=== PATIENT | female | born 1945 | race Caucasian/White ===

== ENCOUNTER → 2017-10-06 | Outpatient (CLI) | payer MEDICARE, OTHER ==
[~2017-10-06] MED LIST: ACET500 PO; Aranesp40 MCG/11; CALC.25 PO; CALCA400CH PO; CARV3.125 PO; CHOL10002 PO; DOCU100 PO; FERSU220EL PO; FURO20 PO; HYDRA25 PO; MONT10T PO; OLME20 PO; OXYC5 PO; ROSU10TA PO; SERT50 PO; SITA25T2 PO; SODBIC650 PO; TOCO1000 PO; Ultram50 MG PO; WARF2.5 PO
[2017-10-06 11:44] LABS: Hematocrit 34.3 % (33.0-51.0); Hemoglobin 10.8 g/dL (11.5-16.0)
[2017-10-06 12:00] LABS: Albumin, Blood 3.9 g/dL (3.4-5.0); Anion Gap 11 mmol/L (6-16); Blood Urea Nitrogen 53 mg/dL (8-24); Bun/Creatinine Ratio 13.3 (12.0-20.0); CO2, Blood 19 mmol/L (21-32); Calcium, Blood 9.6 mg/dL (8.5-10.1); Chloride, Blood 110 mmol/L (98-108); Creatinine, Blood 3.99 mg/dL (0.40-1.00); Glomerular Filtration Rate 12 (60-); Glucose, Blood 89 mg/dL (70-99); Phosphorus, Blood 4.7 mg/dL (2.5-4.9); Potassium, Blood 4.4 mmol/L (3.5-5.5); Sodium, Blood 140 mmol/L (136-145)
== END | disposition home or self-care (01) ==
LOC: OLS 10:45
PROVIDERS: Internal Medicine
DX: I12.9 Hypertensive chronic kidney disease with stage 1 through stage 4 chronic kidney disease, or unspecified chronic kidney disease (principal); N18.4 Chronic kidney disease, stage 4 (severe); D63.1 Anemia in chronic kidney disease
CPT/HCPCS: 36415; 80069; 83970; 85014; 85018

== ENCOUNTER 2018-01-23 08:55 | Day surgery (SDC) | payer MEDICARE, OTHER ==
[~2018-01-23] VITALS: Ht 165.1 cm; Wt 76.2 kg
[~2018-01-23 08:55] MED LIST changes: -DOCU100 PO; -OXYC5 PO; -WARF2.5 PO
[2018-01-24 04:18] LABS: BASOPHILS ABSOLUTE AUTO 0.02 K/mm3 (0.00-0.23); BASOPHILS PERCENT AUTO 0 % (0-2); EOSINOPHILS PERCENT AUTO 0 % (0-6); Hematocrit 27.3 % (33.0-51.0); Hemoglobin 8.8 g/dL (11.5-16.0); IMMATURE GRAN ABSOLUTE AUTO 0.03 K/mm3 (0.00-0.10); IMMATURE GRAN PERCENT AUTO 0 % (0-1); LYMPHOCYTES ABSOLUTE AUTO 1.18 K/mm3 (0.84-5.20); LYMPHOCYTES PERCENT AUTO 13 % (21-46); MONOCYTES ABSOLUTE AUTO 0.78 K/mm3 (0.16-1.47); MONOCYTES PERCENT AUTO 9 % (4-13); Mean Corpuscular HGB Conc 32.2 g/dL (31.5-36.5); Mean Corpuscular Volume 102 fL (80-100); Mean Platelet Volume 9.5 fL (9.1-12.4); NEUTROPHILS ABSOLUTE AUTO 6.94 K/mm3 (1.96-9.15); NEUTROPHILS PERCENT AUTO 78 % (41-73); Platelet Count 168 K/mm3 (150-400); RDW Coefficient Variation 13.7 % (11.7-14.2); RDW Standard Deviation 50.3 fL (35.1-46.3); Red Blood Cell Count 2.67 M/mm3 (3.80-5.20); White Blood Cell Count 8.95 K/mm3 (4.00-11.30)
[2018-01-24 04:32] LABS: Bun/Creatinine Ratio 11.7 (12.0-20.0); Calcium, Blood 8.6 mg/dL (8.5-10.1); Creatinine, Blood 4.46 mg/dL (0.40-1.00); Magnesium, Blood 2.3 mg/dL (1.6-2.4); Potassium, Blood 4.6 mmol/L (3.5-5.5)
[2018-01-24] MEDS ORDERED: WARF2.5 PO (13:13)
[2018-01-24] MEDS ORDERED: OXYC5 PO (13:14)
[2018-01-24] MEDS ORDERED: DOCU100 PO (13:15)
== END 2018-01-24 15:08 | disposition home or self-care (01) ==
LOC: ORSCMMR 08:55 → ORD 10:30 → ORSCMMR 10:30 → SURS 13:55 → ORSCMMR 01-24 15:08
PROVIDERS: Orthopaedic Surgery
PROC: 0SRC0J9 Replacement of Right Knee Joint with Synthetic Substitute, Cemented, Open Approach (ICD-10-PCS; principal; 2018-01-23 10:30)
DX: M17.11 Unilateral primary osteoarthritis, right knee (principal); E11.9 Type 2 diabetes mellitus without complications; N18.9 Chronic kidney disease, unspecified; Z01.812 Encounter for preprocedural laboratory examination; Z01.818 Encounter for other preprocedural examination; I10 Essential (primary) hypertension; Z79.899 Other long term (current) drug therapy
CPT/HCPCS: 36415; 73560-RT; 80048; 82947; 83735; 85025; 86850; 86900; 86901; 88300; 97110; 97116; 97161; 97530; C1713; C1776; G8978; G8979; J0171; J0360; J0690; J0735; J1100; J1170; J1885; J2405; J2765; J2795; J3010; J7030; J7120

== ENCOUNTER → 2018-03-28 | Outpatient (CLI) | payer MEDICARE, OTHER ==
[~2018-03-28] MED LIST changes: +DOCU100 PO; +OXYC5 PO; +WARF2.5 PO
[2018-03-30 15:04] LABS: Stool Occult Bld Immuno 1 Negative (NEGATIVE)
== END ==
LOC: LAB SHORT 09:00 → OLS 09:00 → LAB FUT 03-21 10:05 → EDSTATUS 03-21 10:05
PROVIDERS: Student in an Organized Health Care Education/Training Program
DX: Z12.11 Encounter for screening for malignant neoplasm of colon (principal)
CPT/HCPCS: G0328

== ENCOUNTER → 2019-03-01 | Outpatient (CLI) | payer MEDICARE, OTHER ==
[2019-03-01 10:37] LABS: Appearance, Urine Clear (Clear); Bilirubin, Urine Neg (Neg); Blood, Urine Neg (Neg); Color, Urine Yellow (P-Yellow); Glucose Qualitative, Urine Neg (Neg); Ketones, Urine Neg (Neg); Leukocyte Esterase, Urine 1+ (Neg); Nitrite, Urine Neg (Neg); Protein, Urine 3+ (Neg); Urobilinogen, Urine NORM (Normal)
[2019-03-01 10:48] LABS: Red Blood Cells, Urine 0-2 /hpf (0-2)
[2019-03-01 10:49] LABS: Bacteria Few /hpf; Squamous Epithelial Cells Few /hpf (Few)
== END | disposition home or self-care (01) ==
LOC: LAB SHORT 10:23 → LAB 10:23
PROVIDERS: Internal Medicine
DX: R39.15 Urgency of urination (principal)
CPT/HCPCS: 81001; 87086

== ENCOUNTER 2019-04-19 08:34 | Emergency (ER) | payer MEDICARE, OTHER ==
[~2019-04-19] VITALS: Ht 160 cm; Wt 80.7 kg
[~2019-04-19 08:34] MED LIST changes: -CALC.25 PO; -CARV3.125 PO; -CHOL10002 PO; -FURO20 PO; -MONT10T PO; -OLME20 PO; -ROSU10TA PO; -SERT50 PO; -TOCO1000 PO
[2019-04-19 09:40] LABS: BASOPHILS ABSOLUTE AUTO 0.02 K/mm3 (0.00-0.23); BASOPHILS PERCENT AUTO 0 % (0-2); EOSINOPHILS PERCENT AUTO 1 % (0-6); Hematocrit 34.2 % (33.0-51.0); Hemoglobin 11.3 g/dL (11.5-16.0); IMMATURE GRAN ABSOLUTE AUTO 0.02 K/mm3 (0.00-0.10); IMMATURE GRAN PERCENT AUTO 0 % (0-1); LYMPHOCYTES ABSOLUTE AUTO 1.74 K/mm3 (0.84-5.20); LYMPHOCYTES PERCENT AUTO 22 % (21-46); MONOCYTES ABSOLUTE AUTO 0.68 K/mm3 (0.16-1.47); MONOCYTES PERCENT AUTO 8 % (4-13); Mean Corpuscular HGB 33.6 pg (26.0-34.0); Mean Corpuscular Volume 102 fL (80-100); Mean Platelet Volume 9.9 fL (9.1-12.4); NEUTROPHILS ABSOLUTE AUTO 5.49 K/mm3 (1.96-9.15); NEUTROPHILS PERCENT AUTO 68 % (41-73); Platelet Count 201 K/mm3 (150-400); RDW Coefficient Variation 12.6 % (11.7-14.2); RDW Standard Deviation 46.8 fL (35.1-46.3); Red Blood Cell Count 3.36 M/mm3 (3.80-5.20); White Blood Cell Count 8.05 K/mm3 (4.00-11.30)
[2019-04-19 09:58] LABS: Albumin, Blood 3.4 g/dL (3.4-5.0); Albumin/Globulin Ratio 0.9 (0.8-1.8); Bilirubin, Total 0.4 mg/dL (0.1-1.0); Bun/Creatinine Ratio 6.9 (12.0-20.0); Calcium, Blood 9.6 mg/dL (8.5-10.1); Creatinine, Blood 6.39 mg/dL (0.40-1.00); Globulin, Blood 3.6 g/dL (2.2-4.0); Potassium, Blood 4.1 mmol/L (3.5-5.5)
[2019-04-19 10:26] LABS: Automated BF WBC Count 0.111 K/mm3 (0-999); Body Fluid WBC Count 111 /mm3 (0-999)
[2019-04-19 10:36] LABS: Albumin, Body Fluid 0.3 g/dL
[2019-04-19 11:13] LABS: RBC Count, Body Fluid 50 /mm3 (0-0)
[2019-04-19 11:15] LABS: Appearance, Body Fluid Hazy (Clear); Color, Body Fluid L Yellow (None-Yellow)
[2019-04-19 11:30] LABS: Total Cell Count, Body Fluid 100
[2019-07-19] MEDS ORDERED: Percocet 5-3251 EACH PO (09:36)
== END 2019-04-19 11:42 | disposition home or self-care (01) ==
LOC: ER 08:34
PROVIDERS: Emergency Medicine
DX: J90 Pleural effusion, not elsewhere classified (principal); I10 Essential (primary) hypertension; Z88.8 Allergy status to other drugs, medicaments and biological substances; Z88.5 Allergy status to narcotic agent; Z88.1 Allergy status to other antibiotic agents; Z88.0 Allergy status to penicillin; Z79.899 Other long term (current) drug therapy; Z79.01 Long term (current) use of anticoagulants
CPT/HCPCS: 32555; 71045; 71046; 80053; 82042; 83880; 85025; 87070; 87205; 89051; 99284-25

== ENCOUNTER 2019-04-23 08:55 | Observation (INO) | payer MEDICARE, OTHER ==
[~2019-04-23] VITALS: Ht 160 cm; Wt 81.7 kg
[2019-04-23 10:24] LABS: BASOPHILS ABSOLUTE AUTO 0.05 K/mm3 (0.00-0.23); BASOPHILS PERCENT AUTO 1 % (0-2); EOSINOPHILS ABSOLUTE AUTO 0.12 K/mm3 (0.00-0.68); EOSINOPHILS PERCENT AUTO 2 % (0-6); Hematocrit 34.2 % (33.0-51.0); Hemoglobin 11.2 g/dL (11.5-16.0); IMMATURE GRAN ABSOLUTE AUTO 0.01 K/mm3 (0.00-0.10); IMMATURE GRAN PERCENT AUTO 0 % (0-1); LYMPHOCYTES ABSOLUTE AUTO 1.59 K/mm3 (0.84-5.20); LYMPHOCYTES PERCENT AUTO 23 % (21-46); MONOCYTES ABSOLUTE AUTO 0.61 K/mm3 (0.16-1.47); MONOCYTES PERCENT AUTO 9 % (4-13); Mean Corpuscular HGB 33.8 pg (26.0-34.0); Mean Corpuscular HGB Conc 32.7 g/dL (31.5-36.5); Mean Corpuscular Volume 103 fL (80-100); Mean Platelet Volume 10.1 fL (9.1-12.4); NEUTROPHILS ABSOLUTE AUTO 4.55 K/mm3 (1.96-9.15); NEUTROPHILS PERCENT AUTO 66 % (41-73); Platelet Count 216 K/mm3 (150-400); RDW Coefficient Variation 12.7 % (11.7-14.2); RDW Standard Deviation 48.1 fL (35.1-46.3); Red Blood Cell Count 3.31 M/mm3 (3.80-5.20); White Blood Cell Count 6.93 K/mm3 (4.00-11.30)
[2019-04-23 10:35] LABS: International Normalized Ratio 0.97; Prothrombin Time Results 10.3 Sec (9.7-11.5)
[2019-04-23 10:44] LABS: Albumin, Blood 3.4 g/dL (3.4-5.0); Albumin/Globulin Ratio 1.1 (0.8-1.8); Bilirubin, Total 0.3 mg/dL (0.1-1.0); Bun/Creatinine Ratio 6.9 (12.0-20.0); Calcium, Blood 8.9 mg/dL (8.5-10.1); Creatinine, Blood 5.49 mg/dL (0.40-1.00); Globulin, Blood 3.1 g/dL (2.2-4.0); Potassium, Blood 3.3 mmol/L (3.5-5.5); Total Protein, Blood 6.5 g/dL (6.4-8.2)
--- NOTE | 2019-04-23 12:56 | NUR ---
ECHOCARDIOGRAM COMPLETED
[2019-04-23] MEDS ORDERED: Benicar40 MG PO (13:10)
[2019-04-23] MEDS ORDERED: GABA100 PO (13:11)
[2019-04-23] MEDS ORDERED: NEPHRO-VITE RX1 EACH PO (13:12)
[2019-04-23] MEDS ORDERED: CARV3.125 PO (13:13)
[2019-04-23] MEDS ORDERED: Calcium Acetat667 MG PO (13:13)
[2019-04-23] MEDS ORDERED: CLON.1 PO (13:14)
[2019-04-23] MEDS ORDERED: FURO80 PO (13:14)
[2019-04-23] MEDS ORDERED: CALC.25 PO (13:15)
[2019-04-23] MEDS ORDERED: ROSU10TA PO (13:38)
[2019-04-23] MEDS ORDERED: MONT10T PO (13:39)
[2019-04-23] MEDS ORDERED: CHOL10002 PO (13:39)
[2019-04-23] MEDS ORDERED: SERT50 PO (13:39)
[2019-04-23] MEDS ORDERED: Vitamin E400 UNI4 PO (13:40)
[2019-04-23] MEDS ORDERED: ACET500 PO (13:41)
--- NOTE | 2019-04-23 15:47 | NUR ---
PATIENT ADMITTED TO [facility] FLOOR VIA ER WITH RECURRENT PLEURAL EFFUSION. PATIENT'S PERITONEUM DRAINED TO DRY PER DR MORE'S ORDER. PATIENT'S HOME PD RX IS SET FOR " DRY " DAYTIME AND NO LAST FILL, VERY LITTLE FLUID RETURN WAS OBTAINED. APPROXIMATELY 20 ML DRAIN WAS NOTED. PATIENT COMFORTABLE T/O PROCEDURE. WHEN DRAIN COMPLETE, NEW MINI-CAP WAS AESEPTICALLY PLACED ON CATHETER AND LINE SECURED IN PATIENT GARMENT.
[2019-04-23 16:27] LABS: Automated BF WBC Count 0.139 K/mm3 (0-999); Body Fluid WBC Count 139 /mm3 (0-999)
[2019-04-23 16:43] LABS: pH, Body Fluid 6.1
[2019-04-23 16:48] LABS: Albumin, Body Fluid 0.3 g/dL; Glucose, Body Fluid 426 mg/dL; Lactate Dehydrogenase, Body Fl 19 U/L; Protein, Body Fluid 0.4 g/dL; Triglycerides, Body Fluid 10 mg/dL
[2019-04-23 17:13] LABS: RBC Count, Body Fluid 41 /mm3 (0-0)
[2019-04-23 17:14] LABS: Appearance, Body Fluid Clear (Clear); Color, Body Fluid No color (None-Yellow)
[2019-04-23 17:46] LABS: Total Cell Count, Body Fluid 100
--- NOTE | 2019-04-23 19:41 | NUR ---
SHE HAS BEEN ADMITTED FROM THE ER TO 358 LATE THIS AFTERNOON. SHE IS VERY PLEASANT, A&O AND COOPERATIVE. SHE WALKS WITH A CANE INDEPENDENTLY. THE BANDAID ON HER R BACK POST THORACENTESIS IS CD&I. VERY MILD SOB. PERITONEAL DIALYSIS CATHETER IN L ABD CAPPED AND HAS DRESSING INTACT. L ARM DIALYSIS FISTULA WITH GOOD THRILL AND BRUITT. VSS. NO COMPLAINTS.
[2019-04-24 04:58] LABS: BASOPHILS ABSOLUTE AUTO 0.04 K/mm3 (0.00-0.23); BASOPHILS PERCENT AUTO 1 % (0-2); EOSINOPHILS ABSOLUTE AUTO 0.13 K/mm3 (0.00-0.68); EOSINOPHILS PERCENT AUTO 2 % (0-6); Hematocrit 32.3 % (33.0-51.0); Hemoglobin 10.6 g/dL (11.5-16.0); IMMATURE GRAN ABSOLUTE AUTO 0.02 K/mm3 (0.00-0.10); IMMATURE GRAN PERCENT AUTO 0 % (0-1); LYMPHOCYTES ABSOLUTE AUTO 1.91 K/mm3 (0.84-5.20); LYMPHOCYTES PERCENT AUTO 33 % (21-46); MONOCYTES ABSOLUTE AUTO 0.57 K/mm3 (0.16-1.47); MONOCYTES PERCENT AUTO 10 % (4-13); Mean Corpuscular HGB 33.7 pg (26.0-34.0); Mean Corpuscular HGB Conc 32.8 g/dL (31.5-36.5); Mean Corpuscular Volume 103 fL (80-100); NEUTROPHILS ABSOLUTE AUTO 3.19 K/mm3 (1.96-9.15); NEUTROPHILS PERCENT AUTO 55 % (41-73); Platelet Count 197 K/mm3 (150-400); RDW Coefficient Variation 12.6 % (11.7-14.2); RDW Standard Deviation 47.2 fL (35.1-46.3); Red Blood Cell Count 3.15 M/mm3 (3.80-5.20); White Blood Cell Count 5.86 K/mm3 (4.00-11.30)
--- NOTE | 2019-04-24 05:00 | NUR ---
SHIFT SUMMARY NO ACUTE CHANGES TONIGHT. PT DENIES SOB OR DISCOMFORT. INDEPENDENT IN RM, A&O X 4. VSS, PT AFEBRILE. LS DIM T/O, RESP E/U ON RA. PT TO HAVE HD TODAY PER DR MORE. 22 G TO R HAND IS SL. PT SLPT THROUGH THE NIGHT, AND IS CURRENTLY RESTING IN BED AT THIS TIME, CALL LT IN REACH. WILL CONT TO MONITOR AND PRVIDE CARE UNTIL PRESUMED BY ONCOMING RN.
[2019-04-24 05:19] LABS: Bun/Creatinine Ratio 7.4 (12.0-20.0); Calcium, Blood 9.5 mg/dL (8.5-10.1); Creatinine, Blood 6.36 mg/dL (0.40-1.00); Potassium, Blood 3.6 mmol/L (3.5-5.5)
[2019-04-24] MEDS ORDERED: AMLO5 PO (12:34)
[2019-04-24] MEDS ORDERED: SODBIC650 PO (12:35)
--- NOTE | 2019-04-24 14:31 | NUR ---
PATIENT HAD HEMODIALYSIS THIS MORNING THEN DISCHARGED HOME WITH HER . ESCORTED OUT VIA W/C BY WASH OIL PUMP OPERATOR HELPER. IV REMOVED. INSTRUCTED TO FOLLOW UP WITH DR. MORE FOR OUTPATIENT DIAYLSIS. PATIENT HAS HAD NO ACUTE ISSUES. EAGER TO DISCHARGE HOME. NO SOB NOTED.
[2019-07-19] MEDS ORDERED: Percocet 5-3251 EACH PO (09:36)
== END 2019-04-24 13:10 | disposition home or self-care (01) ==
LOC: ER 08:55 → ERHOLD 08:56 → MEDS 08:56 → ERHOLD 11:18 → MEDS 11:18 → ER 11:18 → MEDS 11:18 → ERHOLD 15:25 → MEDS 15:25 → ENPENDDIS 04-24 10:26 → MEDS 04-24 13:10
PROVIDERS: Physician Assistant; ADMIT Family Medicine
DX: J90 Pleural effusion, not elsewhere classified (principal); I12.0 Hypertensive chronic kidney disease with stage 5 chronic kidney disease or end stage renal disease; K21.9 Gastro-esophageal reflux disease without esophagitis; N18.6 End stage renal disease; M54.5 Low back pain; G89.29 Other chronic pain; J45.909 Unspecified asthma, uncomplicated; M10.9 Gout, unspecified; M48.061 Spinal stenosis, lumbar region without neurogenic claudication; E03.9 Hypothyroidism, unspecified; Z79.899 Other long term (current) drug therapy; Z88.1 Allergy status to other antibiotic agents; Z88.5 Allergy status to narcotic agent; Z88.8 Allergy status to other drugs, medicaments and biological substances
CPT/HCPCS: 32555; 36415; 71045; 71046; 71250; 80048; 80053; 82042; 82945; 83615; 83986; 84157; 84478; 85025; 85610; 87015; 87070; 87102; 87116; 87205; 87206; 88108; 88305; 88342; 89051; 93005; 93010; 93306; 99285-25; G0257; G0378; J1644

== ENCOUNTER 2020-12-18 14:05 | Observation (INO) | payer MEDICARE, OTHER ==
[~2020-12-18] VITALS: Ht 160 cm; Wt 69.0 kg
[~2020-12-18 14:05] MED LIST changes: +AMLO5 PO; +Benicar40 MG PO; +CALC.25 PO; +CARV3.125 PO; +CLON.1 PO; +Calcium Acetat667 MG PO; +FURO80 PO; +GABA100 PO; +MONT10T PO; +NEPHRO-VITE RX1 EACH PO; +Percocet 5-3251 EACH PO; +ROSU10TA PO; +SERT50 PO; +VITAMIN D31000 UNI1 PO; +Vitamin E400 UNI4 PO
[2020-12-18 14:58] LABS: BASOPHILS ABSOLUTE AUTO 0.03 K/mm3 (0.00-0.23); BASOPHILS PERCENT AUTO 1 % (0-2); EOSINOPHILS ABSOLUTE AUTO 0.15 K/mm3 (0.00-0.68); EOSINOPHILS PERCENT AUTO 3 % (0-6); Hematocrit 32.4 % (33.0-51.0); IMMATURE GRAN ABSOLUTE AUTO 0.01 K/mm3 (0.00-0.10); IMMATURE GRAN PERCENT AUTO 0 % (0-1); LYMPHOCYTES ABSOLUTE AUTO 1.69 K/mm3 (0.84-5.20); LYMPHOCYTES PERCENT AUTO 32 % (21-46); MONOCYTES ABSOLUTE AUTO 0.54 K/mm3 (0.16-1.47); MONOCYTES PERCENT AUTO 10 % (4-13); Mean Corpuscular HGB 34.1 pg (26.0-34.0); Mean Corpuscular Volume 100 fL (80-100); Mean Platelet Volume 9.4 fL (9.1-12.4); NEUTROPHILS ABSOLUTE AUTO 2.84 K/mm3 (1.96-9.15); NEUTROPHILS PERCENT AUTO 54 % (41-73); Platelet Count 229 K/mm3 (150-400); RDW Coefficient Variation 13.1 % (11.7-14.2); RDW Standard Deviation 48.6 fL (35.1-46.3); Red Blood Cell Count 3.23 M/mm3 (3.80-5.20); White Blood Cell Count 5.26 K/mm3 (4.00-11.30)
[2020-12-18 15:20] LABS: Albumin, Blood 3.6 g/dL (3.4-5.0); Albumin/Globulin Ratio 0.9 (0.8-1.8); Bilirubin, Total 0.6 mg/dL (0.1-1.0); Bun/Creatinine Ratio 4.2 (12.0-20.0); Calcium, Blood 9.4 mg/dL (8.5-10.1); Creatinine, Blood 2.37 mg/dL (0.40-1.00); Globulin, Blood 3.9 g/dL (2.2-4.0); Potassium, Blood 3.2 mmol/L (3.5-5.5); Total Protein, Blood 7.5 g/dL (6.4-8.2); Troponin I 0.015 ng/mL (0.000-0.040)
[2020-12-18 20:15] LABS: International Normalized Ratio 0.98; Prothrombin Time Results 10.5 Sec (9.7-11.5)
[2020-12-18] MEDS ORDERED: HYDRA25 (21:21)
[2020-12-18] MEDS ORDERED: FURO80 PO (21:21)
[2020-12-18] MEDS ORDERED: LOSARTAN POTASS25 MG (21:22)
--- NOTE | 2020-12-19 04:11 | NUR ---
CHIEF INNOVATION OFFICER SUMMARY A/OX4, INDEPENDENT WITH FWW. ADMITTED FROM ED AT 2100. PT CONVERTED TO NSR IN THE 80'S AT 2230. DENIES PAIN OR SOB. FISTLUA TO L. FA. VSS, NO AUCTE CHANGES AT THIS TIMED. BED IN LOWEST POSITION WITH CALL LIGHT IN REACH. WILL CONTINUE TO MONITOR AND REPORT TO ONCOMING RN.
[2020-12-19 05:13] LABS: BASOPHILS ABSOLUTE AUTO 0.03 K/mm3 (0.00-0.23); BASOPHILS PERCENT AUTO 1 % (0-2); EOSINOPHILS ABSOLUTE AUTO 0.13 K/mm3 (0.00-0.68); EOSINOPHILS PERCENT AUTO 2 % (0-6); Hematocrit 28.3 % (33.0-51.0); Hemoglobin 9.6 g/dL (11.5-16.0); IMMATURE GRAN ABSOLUTE AUTO 0.01 K/mm3 (0.00-0.10); IMMATURE GRAN PERCENT AUTO 0 % (0-1); LYMPHOCYTES ABSOLUTE AUTO 1.82 K/mm3 (0.84-5.20); LYMPHOCYTES PERCENT AUTO 31 % (21-46); MONOCYTES ABSOLUTE AUTO 0.73 K/mm3 (0.16-1.47); MONOCYTES PERCENT AUTO 13 % (4-13); Mean Corpuscular HGB 34.8 pg (26.0-34.0); Mean Corpuscular HGB Conc 33.9 g/dL (31.5-36.5); Mean Corpuscular Volume 103 fL (80-100); Mean Platelet Volume 9.7 fL (9.1-12.4); NEUTROPHILS ABSOLUTE AUTO 3.11 K/mm3 (1.96-9.15); NEUTROPHILS PERCENT AUTO 53 % (41-73); Platelet Count 206 K/mm3 (150-400); RDW Coefficient Variation 13.2 % (11.7-14.2); RDW Standard Deviation 49.3 fL (35.1-46.3); Red Blood Cell Count 2.76 M/mm3 (3.80-5.20); White Blood Cell Count 5.83 K/mm3 (4.00-11.30)
[2020-12-19 05:43] LABS: Albumin, Blood 3.3 g/dL (3.4-5.0); Albumin/Globulin Ratio 0.9 (0.8-1.8); Bilirubin, Total 1.1 mg/dL (0.1-1.0); Bun/Creatinine Ratio 4.3 (12.0-20.0); Calcium, Blood 9.4 mg/dL (8.5-10.1); Creatinine, Blood 3.52 mg/dL (0.40-1.00); Globulin, Blood 3.5 g/dL (2.2-4.0); Potassium, Blood 3.8 mmol/L (3.5-5.5); Total Protein, Blood 6.8 g/dL (6.4-8.2)
--- NOTE | 2020-12-19 13:07 | NUR ---
echocardiogram complete
--- NOTE | 2020-12-19 17:53 | NUR ---
PATIENT IS ALERT AND ORIENTED AND COOPERATIVE WITH CARE. SHE IS INDEPENDENT IN HER ROOM. C/O CHRONIC PAIN TO HER BACK AND RIGHT LEG, TREATED PER EMAR AND WITH A ICE PACK. DR. CRUMP WAS CONSULTED TODAY. WILL CONTINUE TO MONITOR.
--- NOTE | 2020-12-19 17:56 | NUR ---
PATIENT IS ALERT AND ORIENTED WITH INTERMITTENT CONFUSION. SHE IS INDEPENDENT IN HER ROOM WITH A FWW. PATIENT C/O RIGHT SHOULDER PAIN, TREATED PER EMAR. NO NEW CONCERNS TODAY. WILL CONTINUE TO MONITOR
--- NOTE | 2020-12-20 03:47 | NUR ---
PAINT TESTER SUMMARY A/OX4, INDEPENDENT TO BATHROOM WITH FWW. C/O PAIN TO LOWER BACK, MEDICATED PER EMAR X1. TELE IN PLACE RUNNING SR IN THE 70'S. FISTULA TO L. FA. VSS, NO ACUTE CHANGES AT THIS TIME. BED IN LOWEST POSITION WITH CALL LIGHT IN REACH. WILL CONTINUE TO MONITOR AND REPORT TO ONCOMING RN.
[2020-12-20 07:55] LABS: Albumin, Blood 3.5 g/dL (3.4-5.0); Anion Gap 6 mmol/L (6-16); Blood Urea Nitrogen 30 mg/dL (8-24); Bun/Creatinine Ratio 5.7 (12.0-20.0); CO2, Blood 33 mmol/L (21-32); Calcium, Blood 9.5 mg/dL (8.5-10.1); Chloride, Blood 99 mmol/L (98-108); Creatinine, Blood 5.28 mg/dL (0.40-1.00); Glomerular Filtration Rate 8 (60-); Glucose, Blood 83 mg/dL (70-99); Magnesium, Blood 2.2 mg/dL (1.6-2.4); Phosphorus, Blood 5.7 mg/dL (2.5-4.9); Potassium, Blood 4.4 mmol/L (3.5-5.5); Sodium, Blood 138 mmol/L (136-145)
[2020-12-20] MEDS ORDERED: ELIQUIS5 MG PO (13:15)
[2020-12-20] MEDS ORDERED: METO25 PO (13:15)
[2020-12-20] MEDS ORDERED: Percocet 5-3251 EACH PO (13:16)
== END 2020-12-20 13:38 | disposition home or self-care (01) ==
LOC: ER 14:05 → MEDS 14:06
PROVIDERS: Internal Medicine Nephrology; Pharmacist; Physician Assistant; ADMIT Internal Medicine
DX: I48.91 Unspecified atrial fibrillation (principal); N18.6 End stage renal disease; N25.81 Secondary hyperparathyroidism of renal origin; I12.0 Hypertensive chronic kidney disease with stage 5 chronic kidney disease or end stage renal disease; Z66 Do not resuscitate; G89.29 Other chronic pain; D63.1 Anemia in chronic kidney disease; K21.9 Gastro-esophageal reflux disease without esophagitis; I08.1 Rheumatic disorders of both mitral and tricuspid valves; J45.909 Unspecified asthma, uncomplicated; E87.6 Hypokalemia; M79.606 Pain in leg, unspecified; E86.9 Volume depletion, unspecified; E88.09 Other disorders of plasma-protein metabolism, not elsewhere classified; M54.9 Dorsalgia, unspecified; Z88.5 Allergy status to narcotic agent; Z88.0 Allergy status to penicillin; Z88.1 Allergy status to other antibiotic agents; Z88.8 Allergy status to other drugs, medicaments and biological substances; Z99.2 Dependence on renal dialysis; Z90.49 Acquired absence of other specified parts of digestive tract; Z90.710 Acquired absence of both cervix and uterus; Z90.89 Acquired absence of other organs; Z98.890 Other specified postprocedural states; Z79.899 Other long term (current) drug therapy
CPT/HCPCS: 36415; 71045; 80053; 80069; 83735; 84443; 84484; 85018; 85025; 85610; 85730; 93005; 93010; 93306; 99285-25; A9270; A9270-GY; G0378

== ENCOUNTER 2021-04-07 12:52 | Inpatient (IN) | payer MEDICARE, OTHER ==
[~2021-04-07] VITALS: Ht 160 cm; Wt 66.3 kg
[~2021-04-07 12:52] MED LIST changes: +ELIQUIS5 MG PO; +LOSARTAN POTASS25 MG; +METO25 PO
[2021-04-07 13:58] LABS: BASOPHILS ABSOLUTE AUTO 0.04 K/mm3 (0.00-0.23); BASOPHILS PERCENT AUTO 1 % (0-2); EOSINOPHILS ABSOLUTE AUTO 0.07 K/mm3 (0.00-0.68); EOSINOPHILS PERCENT AUTO 1 % (0-6); Hematocrit 31.9 % (33.0-51.0); IMMATURE GRAN ABSOLUTE AUTO 0.02 K/mm3 (0.00-0.10); IMMATURE GRAN PERCENT AUTO 0 % (0-1); LYMPHOCYTES ABSOLUTE AUTO 1.77 K/mm3 (0.84-5.20); LYMPHOCYTES PERCENT AUTO 23 % (21-46); MONOCYTES ABSOLUTE AUTO 0.47 K/mm3 (0.16-1.47); MONOCYTES PERCENT AUTO 6 % (4-13); Mean Corpuscular HGB 32.2 pg (26.0-34.0); Mean Corpuscular HGB Conc 31.3 g/dL (31.5-36.5); Mean Corpuscular Volume 103 fL (80-100); Mean Platelet Volume 10.3 fL (9.1-12.4); NEUTROPHILS PERCENT AUTO 69 % (41-73); Platelet Count 190 K/mm3 (150-400); RDW Coefficient Variation 15.3 % (11.7-14.2); RDW Standard Deviation 57.1 fL (35.1-46.3); Red Blood Cell Count 3.11 M/mm3 (3.80-5.20); White Blood Cell Count 7.57 K/mm3 (4.00-11.30)
[2021-04-07 14:20] LABS: Albumin, Blood 3.2 g/dL (3.4-5.0); Bilirubin, Total 0.9 mg/dL (0.1-1.0); Bun/Creatinine Ratio 3.9 (12.0-20.0); Calcium, Blood 8.9 mg/dL (8.5-10.1); Creatinine, Blood 5.34 mg/dL (0.40-1.00); Globulin, Blood 3.3 g/dL (2.2-4.0); Potassium, Blood 3.9 mmol/L (3.5-5.5); Total Protein, Blood 6.5 g/dL (6.4-8.2)
[2021-04-07 15:26] LABS: Source, Urine Clean Catch
[2021-04-07 15:39] LABS: Appearance, Urine Hazy (Clear); Bilirubin, Urine Neg (Neg); Blood, Urine 2+ (Neg); Color, Urine Yellow (P-Yellow); Glucose Qualitative, Urine 2+ (Neg); Ketones, Urine Neg (Neg); Leukocyte Esterase, Urine 1+ (Neg); Nitrite, Urine Neg (Neg); Protein, Urine 4+ (Neg); Specific Gravity, Urine 1.015 (1.003-1.022); Urobilinogen, Urine NORM (Normal)
[2021-04-07 16:03] LABS: Amorphous Light (0-Heavy); Bacteria Many /hpf; Red Blood Cells, Urine 0-2 /hpf (0-2); Squamous Epithelial Cells Few /hpf (Few)
[2021-04-07] MEDS ORDERED: CINA30 PO (17:37)
[2021-04-07] MEDS ORDERED: RENAL VITAMIN0.8 MG PO (17:38)
[2021-04-07] MEDS ORDERED: SEVEC800 PO ×2 (17:38→17:39)
[2021-04-07] MEDS ORDERED: TUMS500 MG PO (17:39)
[2021-04-07] MEDS ORDERED: ACET500 PO (17:39)
[2021-04-07 18:14] LABS: International Normalized Ratio 1.15; Prothrombin Time Results 12.3 Sec (9.7-11.5)
[2021-04-08 01:56] LABS: BASOPHILS ABSOLUTE AUTO 0.06 K/mm3 (0.00-0.23); BASOPHILS PERCENT AUTO 1 % (0-2); EOSINOPHILS ABSOLUTE AUTO 0.03 K/mm3 (0.00-0.68); EOSINOPHILS PERCENT AUTO 0 % (0-6); Hematocrit 32.7 % (33.0-51.0); Hemoglobin 10.5 g/dL (11.5-16.0); IMMATURE GRAN ABSOLUTE AUTO 0.03 K/mm3 (0.00-0.10); IMMATURE GRAN PERCENT AUTO 0 % (0-1); LYMPHOCYTES PERCENT AUTO 24 % (21-46); MONOCYTES PERCENT AUTO 8 % (4-13); Mean Corpuscular HGB 32.5 pg (26.0-34.0); Mean Corpuscular HGB Conc 32.1 g/dL (31.5-36.5); Mean Corpuscular Volume 101 fL (80-100); Mean Platelet Volume 10.1 fL (9.1-12.4); NEUTROPHILS ABSOLUTE AUTO 4.92 K/mm3 (1.96-9.15); NEUTROPHILS PERCENT AUTO 66 % (41-73); NRBC ABSOLUTE 0.03 K/mm3 (0.00-0.02); NRBC Auto 0.4 /100 WBC (0.0-0.2); Platelet Count 165 K/mm3 (150-400); RDW Coefficient Variation 15.3 % (11.7-14.2); RDW Standard Deviation 55.8 fL (35.1-46.3); Red Blood Cell Count 3.23 M/mm3 (3.80-5.20); White Blood Cell Count 7.44 K/mm3 (4.00-11.30)
[2021-04-08 02:17] LABS: Albumin, Blood 3.3 g/dL (3.4-5.0); Anion Gap 12 mmol/L (6-16); Blood Urea Nitrogen 27 mg/dL (8-24); Bun/Creatinine Ratio 4.5 (12.0-20.0); CO2, Blood 27 mmol/L (21-32); Calcium, Blood 9.4 mg/dL (8.5-10.1); Chloride, Blood 99 mmol/L (98-108); Creatinine, Blood 6.03 mg/dL (0.40-1.00); Glomerular Filtration Rate 7 (60-); Glucose, Blood 106 mg/dL (70-99); Phosphorus, Blood 5.6 mg/dL (2.5-4.9); Potassium, Blood 4.3 mmol/L (3.5-5.5); Sodium, Blood 138 mmol/L (136-145); Troponin I 0.045 ng/mL (0.000-0.040)
--- NOTE | 2021-04-08 05:40 | NUR ---
SHIFT SUMMARY PT AOX4, OCCASIONALLY DYSPNEIC FOLLOWING EPISODES OF COUGHING. SINUS RHYTHM 60'S-70'S, SBP 150'S-160'S. SATS 96-99% ON RA. AMBULATES TO BATHROOM W/WALKER W/STANDBY ASSIST. SOME DYSPNEA W/EXERTION. APPEARS TO BE FAIRLY MILD. NOTE FROM PROVIDER STATING IF PT REVERTS TO AFIB W/HIGH RATE IN ER PREVIOUSLY PLAN TO CARDIOVERT. PT MADE NPO AFTER MIDNIGHT A PRECAUTION IN EVENT INTERVENTION IS NEEDED. ECCHO PLANNED FOR AM. EKG PERFORMED THIS AM AND IN CHART. PT DENIES CP. STATES SOME SMALL AMOUNT OF PRESSURE IN CHEST THAT IS GREATLY IMPROVED. TROPONIN TRENDING DOWN. METOPROLOL DOSE FOR 2100 HELD LAST NIGHT D/T LOW HR OF 59 BPM. PT MAINTAINS 60'S-70'S HR OTHER THAN BRIEF EPISODES AFTER MIDNIGHT OF HR UP INTO 110'S-120'S AND BACK TO 60'S-70'S REPORTED BY [employer] CHRISTINA. SALINE LOCKED. PLAN FOR DIALYSIS TODAY D/T MISSED YESTERDAY.
--- NOTE | 2021-04-08 10:40 | NUR ---
PT WAS TAKEN TO DIALYSIS AT APPROXIMATELY 0915 VIA WHEELCHAIR
--- NOTE | 2021-04-08 11:03 | NUR ---
Echocardiogram completed.
--- NOTE | 2021-04-08 12:12 | NUR ---
ADMIT:04/07/21 DISCHARGE: DX: SOB, Afib with RVR, Elevated troponin CC: [email or web address] JANICE CALL: RESIDENCE: CAREGIVER: Brown Jacobo, Friend, DX: anemia, Afib, HTN, chronic diastolic heart failure, End-stage renal disease, see list DME: none CCM: Referral- 01/2021 HOME HEALTH: None SUMMARY: 04/08/21- per chart review, pt having dialysis today due to missing it yesterday. Echo ordered and completed. It is noted that pt will need medications reconciled prior to discharge as there was confusion at admission. No discharge plan at this time. -kin
--- NOTE | 2021-04-08 19:18 | NUR ---
SHIFT SUMMARY PT HAS BEEN ALERT AND ORIENTED TODAY. PT HAD HEMODIALYSIS THIS MORNING. AFTER HD PT HAD AN ECHO COMPLETED. PT REMAINED NPO WHILE AWAITING CARDIO CONSULTATION. CARDIO HAS STARTED THE PT ON AMIODARONE AND A HEPARIN GTT. PT HAS BEEN GIVEN A DIET ORDER AT THIS TIME. PT DENIES CP AND SOB. PT HAS BEEN ABLE TO TRANSFER SBA WITH WALKER TO THE BATHROOM. BP HAS BEEN SLIGHTLY ELEVATED AND SOME MEDICATIONS HAVE BEEN ADJUSTED TO ACCOMODATE THIS INCREASE. PT IS FINISHING HER DINNER AT THIS TIME
--- NOTE | 2021-04-09 05:19 | NUR ---
SHIFT SUMMARY NO ACUTE CHANGES THIS SHIFT. VSS. AO. HAS REMAINED IN SR WITH STABLE VS. ON RA. OLIGURIC AT BASELINE. L ARM FISTULA WITH STRONG BRUIT NOTED. HEPARIN GTT STARTED AT BEGINNING OF SHIFT. NO CP NOTED. OTHERWISE, PT RESTING IN ROOM. USING CALL LIGHT APPROPRIATELY. WILL CONTINUE TO MONITORE UNTIL SHIFT CHANGE.
[2021-04-09 13:50] LABS: Hemoglobin 10.3 g/dL (11.5-16.0)
[2021-04-09 13:53] LABS: Anion Gap 8 mmol/L (6-16); Blood Urea Nitrogen 25 mg/dL (8-24); Bun/Creatinine Ratio 5.2 (12.0-20.0); CO2, Blood 31 mmol/L (21-32); Calcium, Blood 8.9 mg/dL (8.5-10.1); Chloride, Blood 95 mmol/L (98-108); Creatinine, Blood 4.83 mg/dL (0.40-1.00); Glomerular Filtration Rate 9 (60-); Glucose, Blood 133 mg/dL (70-99); Phosphorus, Blood 3.6 mg/dL (2.5-4.9); Potassium, Blood 3.7 mmol/L (3.5-5.5); Sodium, Blood 134 mmol/L (136-145)
--- NOTE | 2021-04-09 14:21 | NUR ---
04/09/21- per chart review [facility] Dr. Johnston, cardiology is still trying to work on control pt's heart. Plan is to discharge the pt on Monday. -kin
--- NOTE | 2021-04-09 15:21 | NUR ---
PT LEFT FOR DIALYSIS AT APPROXIMATELY 1230 AND RETURNED AT APPROXIMATELY 1500. PT HAD AN ELEVATED HR PRIOR TO DIALYSIS AND WAS GIVEN 25MG PO LOPRESSOR AND HER DAILY DOSAGES WERE ADJUSTED SLIGHTLY. PT DENIES CP, SOB AND BP HAS DECREASED SLIGHTLY TO SBP IN 140s.
--- NOTE | 2021-04-09 18:36 | NUR ---
SHIFT SUMMARY PT HAS BEEN ALERT AND ORIENTED TODAY. SHE WORKED WITH PHYSICAL THERAPY AND HAS BEEN SBA IN THE ROOM WITH THE WALKER. PT WENT TO DIALYSIS TODAY AND CAME BACK TO REST AFTERWARDS IN HER ROOM. PT HAS SWITCHED BACK AND FORTH BETWEEN SINUS AND AFIB. PRIOR TO DIALYSIS PT WAS TACHYCARDIC AND WAS GIVEN AN ADDITIONAL 1 TIME DOSE OF LOPRESSOR. PT DENIES CP AND SOB. PT HAS HEPARIN GTT RUNNING. PT WAS ABLE TO VISIT WITH HER THIS EVENING.
[2021-04-10 04:59] LABS: BASOPHILS ABSOLUTE AUTO 0.06 K/mm3 (0.00-0.23); BASOPHILS PERCENT AUTO 1 % (0-2); EOSINOPHILS ABSOLUTE AUTO 0.18 K/mm3 (0.00-0.68); EOSINOPHILS PERCENT AUTO 2 % (0-6); Hematocrit 31.7 % (33.0-51.0); Hemoglobin 10.2 g/dL (11.5-16.0); IMMATURE GRAN ABSOLUTE AUTO 0.02 K/mm3 (0.00-0.10); IMMATURE GRAN PERCENT AUTO 0 % (0-1); LYMPHOCYTES ABSOLUTE AUTO 2.17 K/mm3 (0.84-5.20); LYMPHOCYTES PERCENT AUTO 28 % (21-46); MONOCYTES ABSOLUTE AUTO 0.63 K/mm3 (0.16-1.47); MONOCYTES PERCENT AUTO 8 % (4-13); Mean Corpuscular HGB 31.8 pg (26.0-34.0); Mean Corpuscular HGB Conc 32.2 g/dL (31.5-36.5); Mean Corpuscular Volume 99 fL (80-100); Mean Platelet Volume 10.6 fL (9.1-12.4); NEUTROPHILS ABSOLUTE AUTO 4.67 K/mm3 (1.96-9.15); NEUTROPHILS PERCENT AUTO 60 % (41-73); Platelet Count 173 K/mm3 (150-400); RDW Coefficient Variation 15.2 % (11.7-14.2); RDW Standard Deviation 54.2 fL (35.1-46.3); Red Blood Cell Count 3.21 M/mm3 (3.80-5.20); White Blood Cell Count 7.73 K/mm3 (4.00-11.30)
--- NOTE | 2021-04-10 05:02 | NUR ---
SHIFT SUMMARY NO ACUTE CHANGES THIS SHIUFT. VSS. SOME HTN BUT NOTABLY LESS THAN PREVIOUS NOC SHIFT. PT UP TO BATHROOM THIS SHIFT WITH HELP WITH IV POLES. HEPARIN CONTINUES TO INFUSE W/O COMPLICATIONS. OTHERWISE, PT RESTING THIS SHIFT. USES CALL LIGHT APPROPRIATELY. WILL CONTINUE TO MONITOR UNTIL SHIFT CHANGE.
[2021-04-10 05:28] LABS: Alanine Aminotransfer (ALT/SGP 30 U/L (12-78); Albumin, Blood 2.9 g/dL (3.4-5.0); Albumin/Globulin Ratio 0.9 (0.8-1.8); Alk Phos 109 U/L (50-136); Anion Gap 5 mmol/L (6-16); Aspartate Aminotrans (AST/SGOT 35 U/L (12-37); Bilirubin, Total 0.7 mg/dL (0.1-1.0); Blood Urea Nitrogen 20 mg/dL (8-24); Bun/Creatinine Ratio 4.9 (12.0-20.0); CHOL/HDL RATIO 1.6; CO2, Blood 31 mmol/L (21-32); Calcium, Blood 9.1 mg/dL (8.5-10.1); Chloride, Blood 96 mmol/L (98-108); Cholesterol 93 mg/dL (50-200); Creatinine, Blood 4.05 mg/dL (0.40-1.00); Globulin, Blood 3.2 g/dL (2.2-4.0); Glomerular Filtration Rate 11 (60-); Glucose, Blood 113 mg/dL (70-99); HDL Cholesterol 58 mg/dL (>39); LDL/HDL RATIO 0.4; Low Density Lipoprotein Chol 21 mg/dL (0-110); Phosphorus, Blood 3.2 mg/dL (2.5-4.9); Potassium, Blood 3.6 mmol/L (3.5-5.5); Sodium, Blood 132 mmol/L (136-145); Total Protein, Blood 6.1 g/dL (6.4-8.2); Triglycerides 70 mg/dL (30-160); Very Low Density Lipoprot Chol 14 mg/dL (6-32)
--- NOTE | 2021-04-10 08:00 | NUR ---
pt laying in bed awake a/ox3, pleasant and cooperative with care, follows commands well, denies pain at this time, lungs are clear t/o, resp even and unlabored, no cough noted, hrirr, running afib this am, no edema noted, ppp+1, cap refill<3sec, vs stable, afebrile, iv site to rac is clear and patent, btx4, abd flat soft nontender, voids without diff, skin c/w/d, H.D. shunt to left fa, bruite noted, esmer busby, call light in reach.
[2021-04-10 12:49] LABS: SARS-Cov-2 (COVID-19) PCR, MMC NEGATIVE (NEGATIVE)
--- NOTE | 2021-04-10 14:20 | NUR ---
pt returned to room after angio, has a right access site and right groin, both sites are clear, groin is soft, no tr band on wrist as they didn't use a sheath, v.s. stable, pt a bit sleepy. will continue to monitor. call light in reach.
--- NOTE | 2021-04-10 18:14 | NUR ---
v.s. stable, cath sites stable, no acute changes. no complaints. call light in reach.
[2021-04-11 04:04] LABS: BASOPHILS ABSOLUTE AUTO 0.05 K/mm3 (0.00-0.23); BASOPHILS PERCENT AUTO 1 % (0-2); EOSINOPHILS ABSOLUTE AUTO 0.09 K/mm3 (0.00-0.68); EOSINOPHILS PERCENT AUTO 2 % (0-6); Hemoglobin 9.8 g/dL (11.5-16.0); IMMATURE GRAN ABSOLUTE AUTO 0.01 K/mm3 (0.00-0.10); IMMATURE GRAN PERCENT AUTO 0 % (0-1); LYMPHOCYTES ABSOLUTE AUTO 1.44 K/mm3 (0.84-5.20); LYMPHOCYTES PERCENT AUTO 28 % (21-46); MONOCYTES ABSOLUTE AUTO 0.53 K/mm3 (0.16-1.47); MONOCYTES PERCENT AUTO 11 % (4-13); Mean Corpuscular HGB 32.1 pg (26.0-34.0); Mean Corpuscular HGB Conc 31.6 g/dL (31.5-36.5); Mean Corpuscular Volume 102 fL (80-100); Mean Platelet Volume 10.8 fL (9.1-12.4); NEUTROPHILS ABSOLUTE AUTO 2.95 K/mm3 (1.96-9.15); NEUTROPHILS PERCENT AUTO 58 % (41-73); NRBC ABSOLUTE 0.02 K/mm3 (0.00-0.02); NRBC Auto 0.4 /100 WBC (0.0-0.2); Platelet Count 145 K/mm3 (150-400); RDW Coefficient Variation 15.6 % (11.7-14.2); RDW Standard Deviation 56.4 fL (35.1-46.3); Red Blood Cell Count 3.05 M/mm3 (3.80-5.20); White Blood Cell Count 5.07 K/mm3 (4.00-11.30)
--- NOTE | 2021-04-11 04:50 | NUR ---
SHIFT SUMMARY NO ACUTE CHANGES THIS SHIFT. VSS. PT CONVERTED FROM AFIB TO SR. SOME HTN NOTED, MEDS PER EMAR. R WRIST AND R GROIN SITES STABLE W/OUT HEMATOMAS, SOME ECCHYMOSIS NOTED. PT DENTING CP T/O SHIFT. OTHERWISE, PT RESTING T/O SHIFT. WILL CONTINUE TO MONITOR UNTIL SHIFT CHANGE.
--- NOTE | 2021-04-11 09:10 | NUR ---
PT TO DIALYSIS AT THIS TIME.
--- NOTE | 2021-04-11 10:01 | NUR ---
AM REPORT: PT AWOKE W/PLEASANT DISPOSITION. SHE REFUSED HER MORNING SHAKE STATING THAT IT MAKES HER NAUSEOUS DURING DIALYSIS. TRANSFERRED PT TO DIALYSIS AT 0900. DEMOLITION ENGINEER ARRIVED AT 1000 AND WILL RETURN AROUND 1200, STATED FROM HIS PERSPECTIVE SHE IS CLEAR TO D/C.
--- NOTE | 2021-04-11 12:35 | NUR ---
PT BACK FROM DIALYSIS. PT CALLING FAMILY FOR A RIDE HOME, AWAITING RIDE FOR DISCHARGE.
[2021-04-11] MEDS ORDERED: METAMUCIL POWD575 GM PO (12:39)
[2021-04-11] MEDS ORDERED: IRBE150 PO (12:40)
[2021-04-11] MEDS ORDERED: AMIODARONE HCL200 MG PO (12:40)
[2021-04-11] MEDS ORDERED: METO25ER PO (12:42)
--- NOTE | 2021-04-11 14:31 | NUR ---
DISCHARGE PT LEFT VIA WHEELCHAIR AT 1430. DISCHARGE INSTRUCTIONS GONE OVER WITH PATIENT, INSTRUCTIONS ON NEW MEDICATIONS DISCUSSED AT LENGTH. PT AWARE OF RESTRICTIONS REGARDING GROIN SITE. NO BRUISING NOTED AT GROIN SITE. DRESSING CDI. PT TOLERATING PO WELL TODAY, REPORTS GOOD APPETITE FOR THE FIRST TIME IN DAYS. DIALYSIS THIS AM, PT TOLERATED WELL. ABLE TO STAND AND PIVOT WITH NO WEAKNESS NOTED. IV REMOVED PRIOR TO DISCHARGE. PT DECLINED ANY FURTHER QUESTIONS.
[2021-06-02] MEDS ORDERED: LOSA25 PO (14:53)
[2021-06-02] MEDS ORDERED: Benicar40 MG PO (14:53)
[2021-06-02] MEDS ORDERED: Alph-E-Mixed400 UNIT (14:54)
[2021-06-02] MEDS ORDERED: CARV3.125 PO (14:54)
== END 2021-04-11 14:29 | disposition home or self-care (01) | DRG 280 ==
LOC: ER 12:52 → ERHOLD 16:58 → PCU 20:02
PROVIDERS: Emergency Medicine; Hospitalist; Internal Medicine; Internal Medicine Cardiovascular Disease; ADMIT Internal Medicine
PROC: 5A1D70Z Performance of Urinary Filtration, Intermittent, Less than 6 Hours Per Day (ICD-10-PCS; 2021-04-09)
PROC: 4A023N7 Measurement of Cardiac Sampling and Pressure, Left Heart, Percutaneous Approach (ICD-10-PCS; principal; 2021-04-10)
PROC: B2111ZZ Fluoroscopy of Multiple Coronary Arteries using Low Osmolar Contrast (ICD-10-PCS; 2021-04-10)
DX: I48.0 Paroxysmal atrial fibrillation (principal); N18.6 End stage renal disease; I21.A1 Myocardial infarction type 2; I13.2 Hypertensive heart and chronic kidney disease with heart failure and with stage 5 chronic kidney disease, or end stage renal disease; Z66 Do not resuscitate; G89.29 Other chronic pain; I34.0 Nonrheumatic mitral (valve) insufficiency; J45.909 Unspecified asthma, uncomplicated; M48.061 Spinal stenosis, lumbar region without neurogenic claudication; K21.9 Gastro-esophageal reflux disease without esophagitis; E03.9 Hypothyroidism, unspecified; F32.9 Major depressive disorder, single episode, unspecified; M10.9 Gout, unspecified; Z20.822 Contact with and (suspected) exposure to COVID-19; Z96.651 Presence of right artificial knee joint; I50.9 Heart failure, unspecified; D63.1 Anemia in chronic kidney disease; I42.9 Cardiomyopathy, unspecified; G62.9 Polyneuropathy, unspecified; M54.9 Dorsalgia, unspecified; Z90.49 Acquired absence of other specified parts of digestive tract; Z90.710 Acquired absence of both cervix and uterus; Z90.89 Acquired absence of other organs; Z99.2 Dependence on renal dialysis; Z98.890 Other specified postprocedural states; Z88.1 Allergy status to other antibiotic agents; Z88.5 Allergy status to narcotic agent; Z88.0 Allergy status to penicillin; Z88.8 Allergy status to other drugs, medicaments and biological substances; Z79.01 Long term (current) use of anticoagulants; Z79.899 Other long term (current) drug therapy; Z95.828 Presence of other vascular implants and grafts
CPT/HCPCS: 36415; 71046; 76937; 80053; 80061; 80069; 81001; 83690; 83735; 83880; 84100; 84484; 85014; 85018; 85025; 85610; 85730; 87086; 93005; 93010; 93306; 93458; 94760; 94762; 96372; 96374; 96375; 96376; 97110; 97110-CQ; 97116; 97161; 97530-CQ; 99152; 99153; 99285-25; A9270; C1760; C1769; C1894; G0378; J1644; J2250; J2405; J3010; J7030; Q9967; U0004

== ENCOUNTER 2021-04-13 09:47 | Emergency (ER) | payer MEDICARE, OTHER | END 2021-04-13 14:13 | disposition home or self-care (01) | LOC: ER 09:47 | DX: I72.9 Aneurysm of unspecified site (principal); N18.6 End stage renal disease; Z98.890 Other specified postprocedural states; Z79.01 Long term (current) use of anticoagulants ==

== ENCOUNTER 2021-04-14 15:07 | Emergency (ER) | payer MEDICARE, OTHER ==
[~2021-04-14] VITALS: Ht 160 cm; Wt 64.4 kg
[~2021-04-14 15:07] MED LIST changes: +AMIODARONE HCL200 MG PO; +CINA30 PO; +IRBE150 PO; +METAMUCIL POWD575 GM PO; +METO25ER PO; +RENAL VITAMIN0.8 MG PO; +SEVEC800 PO; +TUMS500 MG PO
[2021-04-14 16:14] LABS: BASOPHILS ABSOLUTE AUTO 0.05 K/mm3 (0.00-0.23); BASOPHILS PERCENT AUTO 1 % (0-2); EOSINOPHILS ABSOLUTE AUTO 0.08 K/mm3 (0.00-0.68); EOSINOPHILS PERCENT AUTO 1 % (0-6); Hematocrit 21.2 % (33.0-51.0); Hemoglobin 6.7 g/dL (11.5-16.0); IMMATURE GRAN ABSOLUTE AUTO 0.02 K/mm3 (0.00-0.10); IMMATURE GRAN PERCENT AUTO 0 % (0-1); LYMPHOCYTES ABSOLUTE AUTO 1.59 K/mm3 (0.84-5.20); LYMPHOCYTES PERCENT AUTO 25 % (21-46); MONOCYTES ABSOLUTE AUTO 0.65 K/mm3 (0.16-1.47); MONOCYTES PERCENT AUTO 10 % (4-13); Mean Corpuscular HGB 32.1 pg (26.0-34.0); Mean Corpuscular HGB Conc 31.6 g/dL (31.5-36.5); Mean Corpuscular Volume 101 fL (80-100); NEUTROPHILS ABSOLUTE AUTO 3.97 K/mm3 (1.96-9.15); NEUTROPHILS PERCENT AUTO 62 % (41-73); Platelet Count 167 K/mm3 (150-400); RDW Coefficient Variation 15.3 % (11.7-14.2); RDW Standard Deviation 56.8 fL (35.1-46.3); Red Blood Cell Count 2.09 M/mm3 (3.80-5.20); White Blood Cell Count 6.36 K/mm3 (4.00-11.30)
[2021-04-14 16:30] LABS: Albumin, Blood 3.1 g/dL (3.4-5.0); Albumin/Globulin Ratio 0.9 (0.8-1.8); Bilirubin, Total 0.8 mg/dL (0.1-1.0); Bun/Creatinine Ratio 3.5 (12.0-20.0); Calcium, Blood 9.3 mg/dL (8.5-10.1); Creatinine, Blood 1.7 mg/dL (0.40-1.00); Globulin, Blood 3.3 g/dL (2.2-4.0); Potassium, Blood 3.6 mmol/L (3.5-5.5); Total Protein, Blood 6.4 g/dL (6.4-8.2)
[2021-04-14 18:14] LABS: International Normalized Ratio 1.19; Prothrombin Time Results 12.7 Sec (9.7-11.5)
== END 2021-04-15 00:01 | disposition short-term general hospital (02) ==
LOC: ER 15:07
PROVIDERS: Physician Assistant; Student in an Organized Health Care Education/Training Program
DX: I72.4 Aneurysm of artery of lower extremity (principal); Z79.01 Long term (current) use of anticoagulants; Z79.899 Other long term (current) drug therapy; Z88.5 Allergy status to narcotic agent; Z88.0 Allergy status to penicillin; Z88.1 Allergy status to other antibiotic agents
CPT/HCPCS: 36415; 36430; 80053; 85025; 85610; 85730; 86850; 86900; 86901; 86923; 93005; 93010; 93926; 99284-25; J7030; P9016

== ENCOUNTER 2021-06-03 06:22 | Day surgery (SDC) | payer MEDICARE, OTHER ==
[~2021-06-03] VITALS: Ht 160 cm; Wt 65.0 kg
[~2021-06-03 06:22] MED LIST changes: +Alph-E-Mixed400 UNIT; +LOSA25 PO
--- NOTE | 2021-06-03 10:05 | NUR ---
patient returned to [facility] recovery room from cath lab nurse procedure. A&IO. Denies any pain or discomfort. Dressing to left arm fistula in tact with small red spot in center of dressing. no swelling, no hematoma. Good sensation to left hand.
--- NOTE | 2021-06-03 10:22 | NUR ---
left hand and access site unchanged. patient sitting up in bed eating breakfast.
--- NOTE | 2021-06-03 11:40 | NUR ---
PATIENT VERBALIZED UNDERSTANDING OF DISCHARGE INSTRUCTIONS AND PRECAUTIONS. dRESSING OVER LEFT FISTULA ACCESS SITE REMOVED. NO HEMATOMA. NO SWELLING, NO BLEEDEING. A SKIN TEAR NOTED AT THE ACCESS SITE. SOFT DOT DRESSING APPLIED.
--- NOTE | 2021-06-03 11:56 | NUR ---
IV SITE DCED WITH CATHETER INTACT. DRSSING OVER LEFT ARM FISTULA ACCESS SITE D&I. TAKEN TO WAITING CAR VIA WHEELCHAIR BY CRISPIN PANG RN.
== END 2021-06-03 13:00 | disposition home or self-care (01) ==
LOC: MHTC 06:22
DX: I12.0 Hypertensive chronic kidney disease with stage 5 chronic kidney disease or end stage renal disease (principal); N18.6 End stage renal disease; J45.909 Unspecified asthma, uncomplicated; Z99.2 Dependence on renal dialysis; Z96.651 Presence of right artificial knee joint; Z88.1 Allergy status to other antibiotic agents; Z88.5 Allergy status to narcotic agent; Z88.0 Allergy status to penicillin
CPT/HCPCS: 76937; 99152; 99153; C1725; C1769; C1887; C1894; J1644; J2250; J3010; J7030; J7050; Q9967

== ENCOUNTER 2021-07-01 15:49 | Inpatient (IN) | payer MEDICARE, OTHER ==
[~2021-07-01] VITALS: Ht 160 cm; Wt 63.5 kg
[2021-07-01 16:22] LABS: BASOPHILS ABSOLUTE AUTO 0.08 K/mm3 (0.00-0.23); BASOPHILS PERCENT AUTO 2 % (0-2); EOSINOPHILS PERCENT AUTO 2 % (0-6); Hematocrit 30.4 % (33.0-51.0); Hemoglobin 10.1 g/dL (11.5-16.0); IMMATURE GRAN ABSOLUTE AUTO 0.03 K/mm3 (0.00-0.10); IMMATURE GRAN PERCENT AUTO 1 % (0-1); LYMPHOCYTES ABSOLUTE AUTO 1.18 K/mm3 (0.84-5.20); LYMPHOCYTES PERCENT AUTO 23 % (21-46); MONOCYTES ABSOLUTE AUTO 0.34 K/mm3 (0.16-1.47); MONOCYTES PERCENT AUTO 7 % (4-13); Mean Corpuscular HGB Conc 33.2 g/dL (31.5-36.5); Mean Corpuscular Volume 99 fL (80-100); Mean Platelet Volume 10.5 fL (9.1-12.4); NEUTROPHILS PERCENT AUTO 67 % (41-73); NRBC ABSOLUTE 0.05 K/mm3 (0.00-0.02); Platelet Count 206 K/mm3 (150-400); RDW Coefficient Variation 18.9 % (11.7-14.2); RDW Standard Deviation 67.5 fL (35.1-46.3); Red Blood Cell Count 3.06 M/mm3 (3.80-5.20); White Blood Cell Count 5.23 K/mm3 (4.00-11.30)
[2021-07-01 16:50] LABS: Bun/Creatinine Ratio 5.3 (12.0-20.0); Calcium, Blood 10.3 mg/dL (8.5-10.1); Creatinine, Blood 7.69 mg/dL (0.40-1.00); Magnesium, Blood 2.5 mg/dL (1.6-2.4); Potassium, Blood 4.8 mmol/L (3.5-5.5)
[2021-07-01 18:16] LABS: SARS-Cov-2 (COVID-19) PCR, MMC NEGATIVE (NEGATIVE)
--- NOTE | 2021-07-01 19:45 | NUR ---
Patient is admitted at 1845 for dialysis tomorrow. Alert and oriented x3 , able to make needs known. c/o nausea butv denies chest pain ,headache, dizziness and SOB. Spoke with digital product manager who reported that patient will have dialysis in the morning. Incoming notified. Continue to monitor.
[2021-07-02 05:57] LABS: BASOPHILS PERCENT AUTO 2 % (0-2); EOSINOPHILS PERCENT AUTO 4 % (0-6); Hemoglobin 9.9 g/dL (11.5-16.0); IMMATURE GRAN ABSOLUTE AUTO 0.02 K/mm3 (0.00-0.10); IMMATURE GRAN PERCENT AUTO 0 % (0-1); LYMPHOCYTES PERCENT AUTO 31 % (21-46); MONOCYTES ABSOLUTE AUTO 0.51 K/mm3 (0.16-1.47); MONOCYTES PERCENT AUTO 11 % (4-13); Mean Corpuscular HGB 31.9 pg (26.0-34.0); Mean Corpuscular HGB Conc 31.9 g/dL (31.5-36.5); Mean Corpuscular Volume 100 fL (80-100); Mean Platelet Volume 10.3 fL (9.1-12.4); NEUTROPHILS PERCENT AUTO 52 % (41-73); NRBC ABSOLUTE 0.05 K/mm3 (0.00-0.02); Platelet Count 176 K/mm3 (150-400); RDW Coefficient Variation 18.6 % (11.7-14.2); RDW Standard Deviation 66.8 fL (35.1-46.3); White Blood Cell Count 4.83 K/mm3 (4.00-11.30)
[2021-07-02 06:39] LABS: Magnesium, Blood 2.7 mg/dL (1.6-2.4)
[2021-07-02 06:44] LABS: Albumin, Blood 2.6 g/dL (3.4-5.0); Albumin/Globulin Ratio 0.7 (0.8-1.8); Bilirubin, Total 0.7 mg/dL (0.1-1.0); Bun/Creatinine Ratio 5.2 (12.0-20.0); Calcium, Blood 9.9 mg/dL (8.5-10.1); Creatinine, Blood 8.11 mg/dL (0.40-1.00); Globulin, Blood 3.7 g/dL (2.2-4.0); Phosphorus, Blood 6.1 mg/dL (2.5-4.9); Potassium, Blood 4.6 mmol/L (3.5-5.5); Total Protein, Blood 6.3 g/dL (6.4-8.2)
--- NOTE | 2021-07-02 07:04 | NUR ---
PATIENT ALERT AND ORIENTED X3. PATIENT DENIES PAIN OR SOB. PATIENT WAS ADMITTED DUE TO GENERALIZED WEAKNESS. PATIENT WILL BE HAVING DIALYSIS THIS MORNING.LAB CALLED THIS MORNING REPORTING A [facility], CREATININ 8.IIO, DOCTOR ALISIA SANCHEZ.
--- NOTE | 2021-07-02 17:12 | NUR ---
SHIFT SUMMARY PT RECIEVED DIALYSIS TODAY. SEEN BY PT & OT. PLAN TO DC TO SNF TOMORROW AT 3PM PER [employer] DC ASSISTANT FOOD SERVICE MANAGERMITA. PT UPDATED ON PLAN OF CARE AND IS AGREABLE. CT OF ABD COMPLETED & STOOL SAMPLE NEEDED. NO OTHER ACUTE CHANGES IN ASSESSSMENT AT THIS TIME. VS REVIEWED. PT RESTING IN BED. [facility]
--- NOTE | 2021-07-02 17:17 | NUR ---
Update: Per chart review with Dr. Samuel, pt. appropriate for discharge within the next 24-48 hours. Send packet for [place] to review. [facility] has accepted pt. Scheduled transport for 1500 tomorrow. Notified nurse. Pt. unavailable throughout the day when I attempted to talk with her. Nurse caring for pt. on the floor will provide pt. with all the details regarding facility and transport. Called patient's partner Brown and provided him with updates and contact info for [facility]. Packet placed in lockbox outside of patient's room.
--- NOTE | 2021-07-03 01:47 | NUR ---
PATIENT ALERT AND ORIENTED X3. PATIENT DENIES PAIN OR DISCOMFORT. PATIENT DENIES SOB OR ANY DISTRESS. PATIENT SLEPT WELL THROUGHT THE NIGHT NO COMPLAINT VOICED.
[2021-07-03] MEDS ORDERED: ATOR20 PO (11:18)
[2021-07-03] MEDS ORDERED: FAMO10 PO (11:19)
[2021-07-03] MEDS ORDERED: ALBU90OI INH (11:44)
--- NOTE | 2021-07-03 11:52 | NUR ---
RE[facility] TO [facility].
--- NOTE | 2021-07-03 11:55 | NUR ---
MED REC UNPDATED AFTER TALING TO SHAD CH. DR. DUMONT NOTIFIED OF UPDATE AND DISCHARGE MED REC WAS REVISED. NEW ORDERS FAXED TO [facility].
--- NOTE | 2021-07-03 16:31 | NUR ---
DISCHARGE DISCHARGE TO [facility] VIA WHEELCHAIR TRANSPORT. DISCHARGE PACKET WITH DISPATCH OFFICER. BELONGINGS WITH PATIENT. REPORT CALLED TO [facility] NURSE.
== END 2021-07-03 16:11 | DRG 682 ==
LOC: ER 15:49 → MEDS 17:25
PROVIDERS: Emergency Medicine; ADMIT Family Medicine
PROC: 5A1D70Z Performance of Urinary Filtration, Intermittent, Less than 6 Hours Per Day (ICD-10-PCS; principal; 2021-07-01)
DX: I12.0 Hypertensive chronic kidney disease with stage 5 chronic kidney disease or end stage renal disease (principal); N18.6 End stage renal disease; Z20.822 Contact with and (suspected) exposure to COVID-19; E86.0 Dehydration; K57.90 Diverticulosis of intestine, part unspecified, without perforation or abscess without bleeding; R19.7 Diarrhea, unspecified; M54.9 Dorsalgia, unspecified; G89.29 Other chronic pain; I48.91 Unspecified atrial fibrillation; Z99.2 Dependence on renal dialysis; E78.5 Hyperlipidemia, unspecified; J45.909 Unspecified asthma, uncomplicated; D63.1 Anemia in chronic kidney disease; Z90.49 Acquired absence of other specified parts of digestive tract; Z90.89 Acquired absence of other organs; Z90.710 Acquired absence of both cervix and uterus; Z79.01 Long term (current) use of anticoagulants; Z79.899 Other long term (current) drug therapy; Z88.0 Allergy status to penicillin; Z88.1 Allergy status to other antibiotic agents; Z88.5 Allergy status to narcotic agent
CPT/HCPCS: 36415; 74174; 80048; 80053; 83690; 83735; 84100; 85025; 93005; 93010; 97110; 97161; 97165; 97530; 97535; 99285-25; A9270; Q9967; U0004

== ENCOUNTER 2021-08-13 06:45 | Inpatient (IN) | payer MEDICARE, OTHER ==
[~2021-08-13] VITALS: Ht 165.1 cm; Wt 63.7 kg
[~2021-08-13 06:45] MED LIST changes: +ALBU90OI INH; +ATOR20 PO; +FAMO10 PO; +ONDA4ODT MM; +Rena-Vite Tabl0.8 MG PO
[2021-08-13 07:00] LABS: Calcium, Ionized (POC) 1.12 mmol/L (1.10-1.46); Chloride (POC) 98 mmol/L (98-108); Creatinine (POC) 5.8 mg/dL (0.6-1.0); Glucose (ISTAT POC) 41 mg/dL (70-99); Hemoglobin (POC) 13.6 g/dL (12.0-16.0); Potassium (POC) 5.6 mmol/L (3.5-5.5); Sodium (POC) 132 mmol/L (135-148); Total CO2 (POC) 21 mmol/L (21-32)
[2021-08-13 07:25] LABS: BASOPHILS ABSOLUTE AUTO 0.02 K/mm3 (0.00-0.23); BASOPHILS PERCENT AUTO 0 % (0-2); EOSINOPHILS PERCENT AUTO 0 % (0-6); Hematocrit 41.1 % (33.0-51.0); Hemoglobin 11.9 g/dL (11.5-16.0); IMMATURE GRAN ABSOLUTE AUTO 0.03 K/mm3 (0.00-0.10); IMMATURE GRAN PERCENT AUTO 1 % (0-1); LYMPHOCYTES ABSOLUTE AUTO 1.29 K/mm3 (0.84-5.20); LYMPHOCYTES PERCENT AUTO 20 % (21-46); MONOCYTES ABSOLUTE AUTO 0.38 K/mm3 (0.16-1.47); MONOCYTES PERCENT AUTO 6 % (4-13); Mean Corpuscular HGB 32.2 pg (26.0-34.0); Mean Corpuscular Volume 111 fL (80-100); Mean Platelet Volume 10.6 fL (9.1-12.4); NEUTROPHILS ABSOLUTE AUTO 4.81 K/mm3 (1.96-9.15); NEUTROPHILS PERCENT AUTO 74 % (41-73); NRBC Auto 1.5 /100 WBC (0.0-0.2); Platelet Count 146 K/mm3 (150-400); RDW Coefficient Variation 20.5 % (11.7-14.2); RDW Standard Deviation 83.6 fL (35.1-46.3); White Blood Cell Count 6.53 K/mm3 (4.00-11.30)
[2021-08-13 07:37] LABS: Albumin, Blood 2.9 g/dL (3.4-5.0); Albumin/Globulin Ratio 0.7 (0.8-1.8); Bilirubin, Total 1.9 mg/dL (0.1-1.0); Bun/Creatinine Ratio 10.6 (12.0-20.0); Creatinine, Blood 5.02 mg/dL (0.40-1.00); Globulin, Blood 4.2 g/dL (2.2-4.0); Potassium, Blood 5.8 mmol/L (3.5-5.5); Total Protein, Blood 7.1 g/dL (6.4-8.2)
[2021-08-13 08:39] LABS: Influenza A, PCR NEGATIVE (NEGATIVE); Influenza B, PCR NEGATIVE (NEGATIVE); Resp Syncytial Virus, PCR NEGATIVE (NEGATIVE); SARS-Cov-2 (COVID-19) PCR, MMC NEGATIVE (NEGATIVE)
[2021-08-13 08:43] LABS: International Normalized Ratio 2.24; Prothrombin Time Results 22.3 Sec (9.7-11.5)
--- NOTE | 2021-08-13 16:44 | NUR ---
PT ADMITTED TO ROOM 1505. RESP LABORED, AT 12/DAMION. ALMOST NONVERBAL. OCC YES OR NO. BUT HARDLY. HELD FENTANYL PATCH. SIG OTHER STATES THIS MUST BE NEW. NOT USED BEFORE. ALSO PT VERY RALAXED. NOT GRIMMACING, WRITHING. SIG OTHER WITH PT FOR BETTER THAN AN HOUR AND STATES MUST GO BACK TO HOUSE AND CARE FOR ANIMALS. MAY COME BACK. WILL LEAVE PHONE NUMBER ON WALL FOR CONTACT IF CHANGES. BED IN LOW POSITION, CALL LITE IN REACH, BED ALARM ON FOR SAFETY
--- NOTE | 2021-08-13 18:43 | NUR ---
Case conferenced t/o the day with Dr and later bedside RN once pt admitted to medical floor. Pt placed on comfort care per Dr in ER. She has ESRD, dialysis dependent and now hypoxic respiratory failure. RN reports s/s are well managed at last check in and that medications needed to tx s/s are ordered. Pt had family at bedside who had been here much of day with pt and were headed home for the night. They are aware of pt's extremely poor and imminent prognosis, per RN. Plan comfort care assessment per [facility] tomorrow.
--- NOTE | 2021-08-14 08:34 | NUR ---
ORAL CARE DONE, CHAPSTICK APPLIED. PATIENT DENIES ANY PAIN, RESTING COMFORTABLY.
--- NOTE | 2021-08-14 12:35 | NUR ---
REPOSTIONED AND CHANGED BRIEF, NO DISTRESS NOTED AT THIS TIME. LOVED ONE AT BEDSIDE.
--- NOTE | 2021-08-14 12:37 | NUR ---
FAMILY AT BEDSIDE, COMFORT CARE CART OFFERED TO FAMILY. PATIENT IS RESTING COMFORTABLY, DRANK SOME WATER.
--- NOTE | 2021-08-14 17:50 | NUR ---
FAMILY PRESENT AT BEDSIDE, PATIENT RECEIVED ROXINOL FOR COMFORT. ORAL CARE DONE. PATIENT REPOSTIONED. PATIENT RESTING.
--- NOTE | 2021-08-15 06:49 | NUR ---
EARLY IN THE SHIFT, TIMMY WAS VERY FIDGETY AND MAKING SMALL INDISTINGUISHABLE NOISES. BOTH ROXYNOL AND ATROPINE DROPS GIVEN WITH GOOD RELIEF. PATIENT APPEARED CALM AND COMFORTABLE FOR THE REST OF THE SHIFT
--- NOTE | 2021-08-15 09:56 | NUR ---
PT A/O TO PLACE AND SITUATION ON ROUNDING THIS AM. PT REQUESTING TO GET UP AND USE THE BATHROOM. PLACED ON BEDPAN WITH NO URINE OUTPUT. PT DENIED PAIN. PAINAD WAS 0/10. SHE DID HAVE AUDIBLE SECRETIONS WITH BREATHING BUT REPORTED IT WAS NOT CAUSING HER ANY DISCOMFORT. NOTIFIED LIFE PARTNER INESSA SHE WAS AWAKE AND ALERT AND HE CAME IN TO VISIT. AT THIS TIME SHE REQUESTED SOMETHING TO EAT AND DRINK. OBSERVED HER EAT A PUDDING AND DRINK ENSURE/WATER WITH NO SIGS OF CHOKING EPISODES. PLACED ORDER FOR RENAL PUREED DIET AND WILL ADVANCE TOLERATED.
--- NOTE | 2021-08-15 12:25 | NUR ---
PT REPORTED FEELING LIKE SHE HAS TO URINATE, PLACED ON BEDPAN 3X WITH NO URINE OUTPUT. BLADDER SCAN COMPLETED WITH RESULT OF 90 ML. EDUCATED FAMILY AND PT, IF PT CONTINUES TO REPORT DISCOMFORT MAY PLACE CATHETER FOR COMFORT.
--- NOTE | 2021-08-15 14:18 | NUR ---
PT HAS BECOME MORE LETHARGIC BUT AWAKES WITH CARES AND ABLE TO ANSWER YES/NO QUESTIONS. SECRETIONS ARE WORSENING AND FAMILY AGREED TO ALLOW USE OF MEDICATION FOR COMFORT. PT HAD PREVIOUSLY REFUSED MEDICATIONS. PT REPOSITIONED AT 60 DEGREE. SMALL AMOUNT OF URINE PRESENT IN ATTENDS. ATTENDS CHANGED, JESSICA CARE COMPLETED AND PT REPOSITIONED TO RIGHT SIDE. LARGE PURPLE AREA NOTED ON BOTTOM.
--- NOTE | 2021-08-15 15:08 | NUR ---
Visit made to pt, family at bedside. She is sleeping soundly at this time, with no s/s of distress noted. She appears frail, and was given a dose of roxanol 3 times yesterday of 5mg. None needed today so far, as it appears to have caught up with the pain. Reminded family and staff to monitor and medicate for pain, restlessness and/or terminal agitation.
--- NOTE | 2021-08-15 18:42 | NUR ---
SHIFT SUMMARY: PT ON COMFORT CARE AT THIS TIME. PT HAD RALLY THIS AM WHERE SHE AWOKE AND WAS ALERT, TALKING AND ANSWERING QUESTIONS. PT DENIED PAIN AT THAT TIME AND WANTED TO EAT BREAKFAST AND GO TO THE BATHROOM. PT FAMILY NOTIFIED AND THEY CAME IN AND HAD LONG VISIT WITH HER. PT BECAME VERY LETHARGIC AROUND NOON AND HAS BEEN SLEEPING SINCE BUT AROUSES WHEN CARES ARE BEING PERFORMED AND ANSWERS QUESTIONS. SCOPALOMINE PATCH APPLIED DUE TO INCREASED AUDIBLE SECRETIONS AND HAVE IMPROVED SINCE APPLIED.
--- NOTE | 2021-08-16 06:09 | NUR ---
SLEPT MOST OF THE NIGHT. SECRETIONS STILL QUITE AUDIBLE. GAVE ATROPINE GTTS ONCE, THEN SX AFTER LOOSE COUGH AND ORAL CARES, BUT STILL COULDN'T REMOVE ANY. TIMMY STATED SHE WAS OK AND NOT BOTHERED BY THEM. DENIED PAIN AND SHOWED NO VISIBLE INDICATORS OF DISCOMFORT. WOULD WAKE TO GIVE BRIEF ANSWERS OR OPEN HER MOUTH FOR ORAL CARE. SHE CONTINUES TO APPEAR COMFORTABLE.
--- NOTE | 2021-08-16 11:23 | NUR ---
I went with Rosibel in Palliative care to patient's room 325 today to speak with her significant other (Brown) regarding his wishes for her while she is in Comfort Care. Brown states patient has a long-term care policy through [employer] and [employer] as a secondary. I plan to call [employer], [facility], and [facility] to assess benefits and possible placement. Pt's significant other does not want pt to go back to a SNF, even for terminal care. Brown also stated they brought the Long-term care paperwork to Dr. Lu to complete. I plan to follow up with that and assess where in the process that is.
--- NOTE | 2021-08-16 13:16 | NUR ---
DISCUSSED PROGRESSION OF ILLNESS WITH FAMILY AND SIGNIFICANT OTHER PRESENT. FAMILY EDUCATED ON PROGRESSION WITH COMFORT MEASURES VS FULL TREATMENT. FAMILY HAS INFORMED ME THEY WANT TO CONTINUE WITH COMFORT MEASURES AT THIS TIME. THEY ALSO INDICATED THEY PREFER SHE BE TREATED FOR COMFORT HERE AT THE HOSPITAL RATHER THAN TRANSFERRED TO FACILITY THEY INFORMED ME THEY FEEL SHE IS GETTING BETTER CARE HERE. ADVISED I WOULD PASS ON TO CARE MANAGEMENT AND CANNOT GUARANTEE SHE WILL BE ABLE TO HAVE CONTINUOUS TREATMENT HERE AT THE HOSPITAL.
--- NOTE | 2021-08-16 15:25 | NUR ---
Patient is lying in bed and alert. Patient's life partner, Brown, is bedside. He provide context to the medical situation the patient is currently in. He also explains about their 10 years together and the lives the both had prior to there union (they have know each other for 2 decades) . He shares about how he has been her caregiver for a big chunck of their time togehter and he he speaks of their [employer] belief system. I listen empathically, encourage self-care for Brown, and provide inspiring quotes, gentle travel counselor and prayer. I will continue to remain available to patient and family.
--- NOTE | 2021-08-16 16:29 | NUR ---
I called [employer] and they stated that they could not disclose information to me as I am not the patient or the patients significant other. I, again, went to the patients room to relay that to Brown, pt's spouse. He states he doesn't need to call because he already know what it covers and has the paperwork at home. Dr. Johnston is aware that pt's spouse does not want the patient to transfer back to [facility] and would like to continue with Comfort Care at [facility].
--- NOTE | 2021-08-16 18:59 | NUR ---
SHIFT SUMMARY: PT AWAKE MOST OF THE DAY, WITH MINIMAL TO NO PAIN THROUGHOUT THE DAY. FENTANYL PATCH EFFECTIVE IN TREATING PAIN. PT HAS HAD NO URINE OUTPUT TODAY. FAMILY IN WITH PT MOST OF THE DAY. SECRETIONS MANAGED TO FAMILY COMFORT LEVEL WITH SCOPALOMINE PATCH.
--- NOTE | 2021-08-17 16:27 | NUR ---
I spoke to patient's significant other today with Rosibel from Palliative Care and patient again reiterated he requests the patient continue comfort care and stay in the hospital. Patient's health is declining and is expected to pass.
--- NOTE | 2021-08-17 17:59 | NUR ---
Pt respirations slow and shallow appears eminent.
--- NOTE | 2021-08-17 18:07 | NUR ---
Awake and unable to verbalize needs. Repositioning every two hours as needed. Roxanol 20 mg po was given for air hunger. Resting comfortably . No acute event occur during shift.
--- NOTE | 2021-08-17 20:34 | NUR ---
Comfort care PT appeared imminent on earlier frequent rounds & had no resp no pulse pronounced by 2 RNS at 2024. PT HAS FULL DENTURES IN & HAS SEVERAL FLOWER ARRANGEMENTS IN room. 0wn nightgown on . Shoaib RN calling Spouse Brown about Mortuary of choice & if viewing or [facility] services desired.
--- NOTE | 2021-08-17 23:20 | NUR ---
Spouse notified of PT passing , he has chosen mortuary with removal pending. Son came & got PT's personal belongings, Dentures to be sent to mortuary with PT.
--- NOTE | 2021-08-17 23:22 | NUR ---
DR CHAMPION notified of PT's expiration.
== END 2021-08-17 20:25 | DRG 951 ==
LOC: ER 06:45 → ERHOLD 10:54 → MEDS 10:54
PROVIDERS: Student in an Organized Health Care Education/Training Program; ADMIT Family Medicine
DX: Z51.5 Encounter for palliative care (principal); J96.01 Acute respiratory failure with hypoxia; N18.6 End stage renal disease; K72.00 Acute and subacute hepatic failure without coma; G93.41 Metabolic encephalopathy; I12.0 Hypertensive chronic kidney disease with stage 5 chronic kidney disease or end stage renal disease; I48.20 Chronic atrial fibrillation, unspecified; E87.2 Acidosis; G89.29 Other chronic pain; Z66 Do not resuscitate; M54.9 Dorsalgia, unspecified; Z20.822 Contact with and (suspected) exposure to COVID-19; E87.5 Hyperkalemia; E88.09 Other disorders of plasma-protein metabolism, not elsewhere classified; E16.2 Hypoglycemia, unspecified; Z99.2 Dependence on renal dialysis; Z88.0 Allergy status to penicillin; Z88.1 Allergy status to other antibiotic agents; Z88.8 Allergy status to other drugs, medicaments and biological substances; Z88.5 Allergy status to narcotic agent; Z90.49 Acquired absence of other specified parts of digestive tract; Z90.89 Acquired absence of other organs; Z90.710 Acquired absence of both cervix and uterus; Z98.890 Other specified postprocedural states; Z91.15 Patient's noncompliance with renal dialysis
CPT/HCPCS: 0241U; 36415; 70450; 71045; 76705; 80047; 80053; 82947; 83605; 83880; 84145; 84484; 85014; 85025; 85610; 85730; 87040; 87086; 93005; 93010; 94760; 96365; 96366; 96367; 96375; 96376; 99285-25; A9270; J0610; J0692; J2270; J3370; J3475; J7030